=== PATIENT | male | born 1960 | race Caucasian/White ===

== ENCOUNTER 2024-06-09 06:58 | Emergency (ER) | payer SELFPAY ==
[~2024-06-09] VITALS: Ht 167.6 cm; Wt 79.0 kg
[2024-06-09 07:02] VITALS: O2SAT 100
[2024-06-09 08:45] VITALS: TEMP 96.4
[2024-06-09] MEDS: ACETAMINOPHEN 325MG TABLET PO ONE (08:45)
[2024-06-09] MEDS: METOCLOPRAMIDE HCL 10MG/2ML VIAL IV ONE (08:45)
[2024-06-09] MEDS: METHOCARBAMOL 500MG TABLET PO ONE (08:45)
[2024-06-09] MEDS ORDERED: LACTATED RINGERS 1,000 ML IV SCH (08:45)
[2024-06-09] MEDS: KETOROLAC 15MG/ML VIAL IV ONE (10:36)
[2024-06-09 11:56] VITALS: BP 149/96; PULSE 74; RESP 16
[2024-06-09] MEDS: OXYCODONE HCL/ACETAMINOPHEN 5/325MG TABLET PO ONE (11:56)
[2024-06-09] MEDS ORDERED: IBUP-2029 MT (12:46)
== END 2024-06-09 14:11 | disposition home or self-care (01) ==
LOC: ER 07:46
DX: R51.9 Headache, unspecified (principal); M50.20 Other cervical disc displacement, unspecified cervical region; I10 Essential (primary) hypertension
CPT/HCPCS: 99285; 70450; 96374; 96375; 72125; J1885; J2765